=== PATIENT | female | born 1990 | race American Indian/Alaskan Native ===

== ENCOUNTER 2017-01-14 08:51 | Emergency (ER) | payer SELFPAY ==
[2017-01-14 09:09] VITALS: BP 132/87
[2017-01-14 09:33] LABS: Basophils % (Auto) 0.4 % (0.0-1.8); Eosinophils % (Auto) 0.2 % (0.0-4.3); Hematocrit 40.4 % (30.3-42.9); Hemoglobin 12.7 gm/dl (10.1-14.3); Mean Corpuscular HGB Conc 31 % (30-34); Mean Corpuscular Volume 82 fl (79-97); Platelet Count 190 K/mm3 (140-440); Red Blood Count 4.96 M/mm3 (3.65-5.03); Red Cell Distribution Width 14.8 % (13.2-15.2); White Blood Count 8.4 K/mm3 (4.5-11.0)
[2017-01-14 09:39] LABS: Mean Corpuscular Hemoglobin 26 pg (28-32)
[2017-01-14 10:04] LABS: Bilirubin,Urine NEG (Negative); Blood,Urine NEG (Negative); Ketones,Urine 20 mg/dL (Negative); Leukocyte Esterase,Urine NEG (Negative); Mucus,Urine 3+ /HPF; Nitrite,Urine NEG (Negative); Urobilinogen,Urine < 2.0 mg/dL (<2.0)
[2017-01-14 10:05] LABS: Protein,Urine >500 mg/dL (Negative)
[2017-01-14 10:07] LABS: Anion Gap 22 mmol/L; BUN/Creatinine Ratio 12.85; Blood Urea Nitrogen 9 mg/dL (7-17); Calcium 10.2 mg/dL (8.4-10.2); Carbon Dioxide 21 mmol/L (22-30); Chloride 97.8 mmol/L (98-107); Glucose 144 mg/dL (65-100); Potassium 4.2 mmol/L (3.6-5.0); Sodium 137 mmol/L (137-145)
[2017-01-14] MEDS ORDERED: LACTATED RINGERS 1,000 ML IV ONE (10:14)
[2017-01-14] MEDS ORDERED: ZOFRAN IV ONE (10:42)
== END 2017-01-14 12:18 | disposition home or self-care (01) ==
LOC: ED 08:51
DX: O21.0 Mild hyperemesis gravidarum (principal); Z3A.00 Weeks of gestation of pregnancy not specified
CPT/HCPCS: 36415; 80048; 81001; 81025; 84702; 85025; 96361; 96374; 99283; J2405; J7120

== ENCOUNTER 2017-01-19 19:44 | Emergency (ER) | payer SELFPAY ==
[2017-01-19] MEDS ORDERED: ZOFRAN ODT PO ONE (20:47)
[2017-01-19 21:21] LABS: Basophils % (Auto) 0.5 % (0.0-1.8); Eosinophils % (Auto) 0.3 % (0.0-4.3); Hemoglobin 13.2 gm/dl (10.1-14.3); Mean Corpuscular HGB Conc 32 % (30-34); Mean Corpuscular Volume 81 fl (79-97); Platelet Count 193 K/mm3 (140-440); Red Blood Count 5.08 M/mm3 (3.65-5.03); White Blood Count 8.3 K/mm3 (4.5-11.0)
[2017-01-19 21:23] LABS: Mean Corpuscular Hemoglobin 26 pg (28-32)
[2017-01-19 21:41] LABS: Anion Gap 25 mmol/L; Blood Urea Nitrogen 9 mg/dL (7-17); Calcium 10.5 mg/dL (8.4-10.2); Carbon Dioxide 20 mmol/L (22-30); Chloride 97.2 mmol/L (98-107); Glucose 124 mg/dL (65-100); Potassium 3.8 mmol/L (3.6-5.0); Sodium 138 mmol/L (137-145)
[2017-01-20] MEDS ORDERED: ZOFRAN IV ONE (00:23)
[2017-01-20] MEDS ORDERED: NACL 0.9% 1000 ML 2,000 ML IV ONE (00:23)
[2017-01-20] MEDS ORDERED: MORPHINE IV ONE (00:23)
[2017-01-20] MEDS ORDERED: NORMODYNE IV ONE (00:26)
[2017-01-20 00:52] VITALS: BP 117/68
[2017-01-20 01:05] LABS: Alanine Aminotransferase 9 units/L (7-56); Albumin 4.4 g/dL (3.9-5); Alkaline Phosphatase 50 units/L (35-129); Lipase 26 units/L (13-60); Total Protein 8.6 g/dL (6.3-8.2)
[2017-01-20 01:07] LABS: Bilirubin,Direct < 0.2 mg/dL (0-0.2); Bilirubin,Indirect 0.3 mg/dL
--- NOTE | 2017-01-20 01:39 | Emergency Department Report ---
HPI - General Chief Complaint: Abdominal Pain Time Seen by Provider: 01/20/17 00:15 - HPI HPI: The patient is a 26-year-old female , EGA of 6 weeks, who presents for evaluation of abdominal pain and vomiting. The patient reports 1 week of on and off abdominal pain, cramping in quality, 9/10 in severity, exacerbated with retching, and associated with nausea, and multiple episodes of nonbilious, nonbloody emesis. She shares that she experienced morning sickness and recurrent episodes of vomiting with her first . The patient denies fever, trauma to the abdomen, chills, night sweats, dyspnea, chest pain, diarrhea, blood in the stool, dark tarry stool, dysuria, hematuria, flank pain, vaginal bleeding, vaginal discharge, inability to pass flatus. ED Past Medical Hx - Past Medical History Previous Medical History?: No Additional medical history: Vaginal delivery x1 - Surgical History Past Surgical History?: Yes Additional Surgical History: - Social History Smoking Status: Never Smoker Substance Use Type: None - Medications Home Medications: Home Medications Medication Instructions Recorded Confirmed Last Taken Type Doxylamine/Pyridoxine HCl 1 each PO DAILY #15 tablet. 01/14/17 Unknown Rx [Diclegis Dr 10-10 mg Tablet] Acetaminophen [Tylenol] 500 mg PO Q6HR #20 tablet 01/20/17 Unknown Rx Ondansetron [Zofran TAB] 4 mg PO Q8HR PRN #20 tablet 01/20/17 Unknown Rx Pnv95/Ferrous Fumarate/FA 1 each PO QDAY #31 tablet 01/20/17 Unknown Rx [ Vitamin Tablet] ED Review of Systems ROS: Stated complaint: ABD PAIN/VOMITING Other details as noted in HPI Constitutional: denies: fever ENT: denies: throat or neck pain Respiratory: denies: cough, shortness of breath Cardiovascular: denies: chest pain Endocrine: denies unexplained weight loss or gain Gastrointestinal: reports abdominal pain, nausea Genitourinary: denies: dysuria Musculoskeletal: denies: leg swelling Skin: denies: rash Neurological: denies: headache Hematological/Lymphatic: denies: easy bleeding or easy bruising Psych: denies sadness or hopelessness Physical Exam - Physical Exam Vital Signs: Vital Signs 01/19/17 01/20/17 01/20/17 20:41 00:50 00:51 Temperature 98.6 F Pulse Rate 116 H 80 Respiratory 24 18 18 Rate Blood Pressure 143/102 Blood Pressure 117/68 [Right] O2 Sat by Pulse 99 100 Oximetry Physical Exam: General: well-nourished, well-developed, no acute distress Head: Normocephalic, atraumatic Eyes: normal sclera ENT: Mucous membranes are pale and dry Neck: No neck stiffness, no cervical adenopathy Respiratory: Breath sounds equal bilaterally, no wheezing, rales, or rhonchi Cardio: S1 and S2 present, no murmurs, rubs, gallops, capillary refill is delayed Abdomen: Normoactive bowel sounds, soft abdomen, suprapubic and infraumbilical tenderness to palpation present, no rigidity, no guarding or rebound tenderness , no pain in McBurney's point Chest WALL/Back: No tenderness to palpation of the chest wall, no CVA tenderness with percussion Musc: No pitting edema Skin: No rash Neuro: no facial drooping, normal speech Psych: Normal affect ED Course Vital Signs 01/19/17 01/20/17 01/20/17 20:41 00:50 00:51 Temperature 98.6 F Pulse Rate 116 H 80 Respiratory 24 18 18 Rate Blood Pressure 143/102 Blood Pressure 117/68 [Right] O2 Sat by Pulse 99 100 Oximetry ED Medical Decision Making - Lab Data Result diagrams: 01/19/17 21:04 01/19/17 21:04 - Medical Decision Making The patient was seen and examined by myself. The patient is placed on a lunchroom monitor and continuous pulse ox. On initial evaluation, the patient was found to be in no distress. Evaluation orders are placed. IV access is established and the patient is given 2 L normal saline fluid bolus for treatment of dehydration, and Zofran for nausea, and IV analgesic for pain. Lab results revealed elevated hCG level, and otherwise labs were grossly unremarkable including WBC, hemoglobin, hematocrit, electrolytes, renal function , LFTs, lipase. Ultrasound of the pelvis reveals a live intrauterine with heart rate within normal limits. The patient was reevaluated and reported that their symptoms were markedly improved. The patient is stable for discharge with outpatient follow-up. The patient is given follow-up and return instructions. The patient expressed understanding and agreed with the plan. The patient is discharged in stable condition. Critical care attestation.: If time is entered above; I have spent that time in minutes in the direct care of this critically ill patient, excluding procedure time. ED Disposition Clinical Impression: Dehydration, Abdominal pain, acute, periumbilical, Hyperemesis gravidarum Disposition: DISCHARGED TO HOME OR SELFCARE Is pt being admited?: No Does the pt Need Aspirin: No Condition: Stable Instructions: Abdominal Pain (ED), Abdominal Pain in (ED), Hyperemesis Gravidarum (ED) Prescriptions: Acetaminophen [Tylenol] 500 mg PO Q6HR #20 tablet Ondansetron [Zofran TAB] 4 mg PO Q8HR PRN #20 tablet PRN Reason: Nausea Pnv95/Ferrous Fumarate/FA [ Vitamin Tablet] 1 each PO QDAY #31 tablet Referrals: PRIMARY CARE, [Primary Care Provider] - 3-5 Days [facility] [Provider Group] - 3-5 Days Time of Disposition: 01:35
--- NOTE | 2017-01-20 01:47 | Ultrasound Report ---
FINAL REPORT PROCEDURE: US OB \T\lt; = 14 WEEKS FETUS TECHNIQUE: Real-time transabdominal sonography of the uterus, placenta, amniotic fluid, adnexa, and fetus was performed with image documentation. Measurements were obtained to determine age/size. M-mode Doppler was used to document heartbeat. CPT 19016 HISTORY: abdominal pain COMPARISON: No prior studies are available for comparison. FINDINGS: CRL: 6.7 mm, which corresponds to a gestational age of: 6 weeks, 4 days. Yolk Sac: Normal. Embryonic Cardiac Activity: 120 beats per minute Gestational Sac: Normal. Amniotic fluid: Normal. Cervix: Normal. Right Ovary: Not visualized on this study Left Ovary: Normal. Uterus and adnexa: As above IMPRESSION: Single live intrauterine gestation at approximately 6 weeks 4 days.
== END 2017-01-20 03:25 | disposition home or self-care (01) ==
LOC: ED 19:44
DX: O99.281 Endocrine, nutritional and metabolic diseases complicating pregnancy, first trimester (principal); O21.0 Mild hyperemesis gravidarum; E86.0 Dehydration; Z3A.00 Weeks of gestation of pregnancy not specified
CPT/HCPCS: 36415; 76801; 80048; 80074; 83690; 84702; 85025; 96361; 96374; 96375; 99284; J2270; J2405; J7030; Q0162

== ENCOUNTER 2017-01-21 11:37 | Emergency (ER) | payer SELFPAY ==
[2017-01-21 14:45] LABS: Basophils % (Auto) 0.3 % (0.0-1.8); Eosinophils % (Auto) 0.1 % (0.0-4.3); Hematocrit 40.3 % (30.3-42.9); Hemoglobin 13.2 gm/dl (10.1-14.3); Mean Corpuscular HGB Conc 33 % (30-34); Mean Corpuscular Hemoglobin 27 pg (28-32); Mean Corpuscular Volume 81 fl (79-97); Platelet Count 180 K/mm3 (140-440); Red Cell Distribution Width 14.8 % (13.2-15.2)
[2017-01-21 14:52] LABS: Anion Gap 27 mmol/L; BUN/Creatinine Ratio 16.66; Blood Urea Nitrogen 10 mg/dL (7-17); Calcium 10.3 mg/dL (8.4-10.2); Carbon Dioxide 18 mmol/L (22-30); Chloride 96.2 mmol/L (98-107); Glucose 104 mg/dL (65-100); Potassium 3.4 mmol/L (3.6-5.0); Sodium 138 mmol/L (137-145)
[2017-01-21] MEDS ORDERED: LACTATED RINGERS 1,000 ML IV ONE (14:54)
[2017-01-21 17:04] VITALS: BP 115/70
== END 2017-01-21 17:02 | disposition home or self-care (01) ==
LOC: ED 11:37
DX: O21.0 Mild hyperemesis gravidarum (principal); Z3A.01 Less than 8 weeks gestation of pregnancy
CPT/HCPCS: 36415; 80048; 84702; 85025; 96360; 99284; J7120

== ENCOUNTER 2021-01-19 17:41 | Emergency (ER) | payer MEDICAID ==
[2021-01-19] MEDS ORDERED: ONDANSETRON 4 MG ODT TAB ONE (18:30)
[2021-01-19 18:35] VITALS: BP 144/73
[2021-01-19] MEDS ORDERED: ONDANSETRON 4 MG ODT TAB PO/SL ONE (18:37)
--- NOTE | 2021-01-19 18:37 | Event Note ---
ED Screening Note Date of service: 01/19/21 Time: 18:32 ED Screening Note: Pt was brought to ED via EMS with c/o abd pain, nausea and vomiting since this morning. Patient states she also feels generally weak and dizzy and she states she woke up off the floor this morning and is not sure how she got there. Pt does admit to drinking shots of ETOH last night. She states she only had 2 shots. She denies any other illicit dry use. Pt actively vomiting in triage but also hyperventilating. This initial assessment/diagnostic orders/clinical plan/treatment(s) is/are subject to change based on patients health status, clinical progression and re- assessment by fellow clinical providers in the ED. Further treatment and workup at subsequent clinical providers discretion. Patient/guardian urged not to elope from the ED as their condition may be serious if not clinically assessed and managed. Initial orders include: Abd pain order set
== END 2021-01-20 ==
LOC: ED 17:41
DX: R10.9 Unspecified abdominal pain (principal); Z53.21 Procedure and treatment not carried out due to patient leaving prior to being seen by health care provider
CPT/HCPCS: Q0162